=== PATIENT | male | born 1985 | race American Indian/Alaskan Native ===

== ENCOUNTER 2020-02-15 17:48 | Emergency (ER) | payer SELFPAY ==
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
[2020-02-15] MEDS ORDERED: HYDROcodone/ACETAMINOPHEN 7.5-325MG TAB PO ONE (20:09)
[2020-02-15] MEDS ORDERED: IBUPROFEN 600 MG TAB PO ONE (20:09)
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
[2020-02-15 20:36] VITALS: BP 136/102
== END 2020-02-15 21:05 | disposition home or self-care (01) ==
LOC: ED 17:48
DX: S82.892A Other fracture of left lower leg, initial encounter for closed fracture (principal); F17.200 Nicotine dependence, unspecified, uncomplicated; Z79.899 Other long term (current) drug therapy; X50.9XXA Other and unspecified overexertion or strenuous movements or postures, initial encounter; Y93.89 Activity, other specified; Y92.89 Other specified places as the place of occurrence of the external cause; Y99.8 Other external cause status

== ENCOUNTER 2020-03-19 01:08 | Emergency (ER) | payer SELFPAY ==
[2020-03-19 02:01] VITALS: BP 151/120
== END 2020-03-19 03:20 | disposition left against medical advice (07) ==
LOC: ED 01:08
DX: M25.572 Pain in left ankle and joints of left foot (principal); Z53.21 Procedure and treatment not carried out due to patient leaving prior to being seen by health care provider